=== PATIENT | male | born 1975 | race Two or more races ===

== ENCOUNTER 2020-11-17 23:25 | Emergency (ER) | payer MEDICAID, OTHER ==
[~2020-11-17] VITALS: Ht 172.7 cm; Wt 67.6 kg
[2020-11-18 06:38] VITALS: BP 131/85
== END 2020-11-18 06:45 | disposition home or self-care (01) ==
LOC: ER 23:25
DX: S83.91XA Sprain of unspecified site of right knee, initial encounter (principal); W01.0XXA Fall on same level from slipping, tripping and stumbling without subsequent striking against object, initial encounter; Y93.89 Activity, other specified; Y92.89 Other specified places as the place of occurrence of the external cause; Y99.8 Other external cause status
CPT/HCPCS: 29505; 73562